=== PATIENT | female | born 1970 | race Caucasian/White ===

== ENCOUNTER → 2017-01-20 | Day surgery (SDC) | payer OTHER ==
[2017-01-20 07:37] LABS: HCT 42.8 % (37.0-47.0); HGB 14.1 g/dl (12.5-16.0); MCHC 32.9 g/dL (32.0-36.0); MCV 88.1 fL (78.0-100.0); MPV 10.3 fL (6.0-9.5); RBC 4.86 M/uL (4.20-5.40); RDW 13.3 % (11.5-14.0)
== END | disposition home or self-care (01) ==
LOC: FAS 07:14
PROVIDERS: Obstetrics & Gynecology
DX: N92.0 Excessive and frequent menstruation with regular cycle (principal); N94.6 Dysmenorrhea, unspecified; F32.9 Major depressive disorder, single episode, unspecified; F17.210 Nicotine dependence, cigarettes, uncomplicated; Z91.040 Latex allergy status; Z90.49 Acquired absence of other specified parts of digestive tract; Z83.49 Family history of other endocrine, nutritional and metabolic diseases; Z82.49 Family history of ischemic heart disease and other diseases of the circulatory system; Z79.3 Long term (current) use of hormonal contraceptives; Z79.899 Other long term (current) drug therapy; Z98.890 Other specified postprocedural states
CPT/HCPCS: 36415; 84703; 88305; J1100; J1170; J1885; J2405; J2704; J3010

== ENCOUNTER → 2022-02-04 | Day surgery (SDC) | payer OTHER ==
[~2022-02-04] VITALS: Ht 172.7 cm; Wt 80.7 kg
[~2022-02-04] MED LIST: PROTONIX 40MG T40 MG PO; VENTOLIN HFA IN18 GM INH
== END | disposition home or self-care (01) ==
LOC: FAS 11:30
DX: K64.2 Third degree hemorrhoids (principal); K64.4 Residual hemorrhoidal skin tags; K21.9 Gastro-esophageal reflux disease without esophagitis; F17.210 Nicotine dependence, cigarettes, uncomplicated; Z90.49 Acquired absence of other specified parts of digestive tract; Z91.040 Latex allergy status; Z79.899 Other long term (current) drug therapy
CPT/HCPCS: J2250; J2405; J2704; J7120